=== PATIENT | female | born 1995 | race Caucasian/White ===

== ENCOUNTER 2024-06-08 09:35 | Outpatient (CLI) | payer OTHER, SELFPAY ==
[2024-06-08 11:01] LABS: Alanine Aminotransferase 20 U/L (14-59); Albumin Level 3.6 g/dL (3.4-5.0); Alkaline Phosphatase 91 U/L (46-116); Anion Gap 9 mmol/L (4-12); Aspartate Amino Transferase 14 U/L (15-37); Bilirubin,Total 0.3 mg/dL (0.00-1.00); Blood Urea Nitrogen 11 mg/dL (7-18); Calcium 9.2 mg/dL (8.5-10.1); Carbon Dioxide 25 mmol/L (21-32); Chloride 106 mmol/L (98-108); Estimated Glomerular Filt Rate > 60; Glucose 86 mg/dL (70-99); NT Pro B Type Natriuretic Pept 113 pg/mL (0-125); Osmolality Calculated 288 mOsm/kg (285-295); Potassium 3.9 mmol/L (3.5-5.1); Sodium 140 mmol/L (136-145); Total Protein 7.4 g/dL (6.4-8.2)
[2024-06-08 12:20] LABS: Thyroid Stimulating Hormone Reflex 1.44 u/IU/mL (0.36-3.74)
== END 2024-06-08 09:36 | disposition home or self-care (01) ==
DX: G93.32 Myalgic encephalomyelitis/chronic fatigue syndrome (principal); R63.5 Abnormal weight gain
CPT/HCPCS: 36415; 80053; 83880; 84443

== ENCOUNTER 2024-12-10 16:18 | Outpatient (RCR) | payer OTHER, SELFPAY ==
--- NOTE | 2024-12-12 14:13 | BUOTOPEVAL ---
Assessment and note entered by Komal Bedolla OT Evaluation Information Assessment Status Evaluation Diagnosis R extensor tendon injury ICD-10 Condition Codes (OT) Pain in right hand M79.641,Generalized muscle weakness M62.81 Onset September 2024 Reported Pain Level Pain Score 3: Self Report Pain Score 2: Self Report Assessment OT Clinical Summary The patient is a 29 year old female who was referred to outpatient OT due to R index finger pain and extensor tendon injury. 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 At this time, the patient demonstrates minimal pain, minimal AROM deficits and discomfort during daily tasks such as handwriting. The patient requires skilled OT to address deficits and improve the patient's ability to engage in caring for her family and performing ADLs without discomfort. The patient to be seen 1-2x/week for 10 visits. Plan of Care Interventions Therapeutic Exercise,Manual Therapy,Therapeutic Activities,Hot Pack/Cold Pack,Sensory Integrative Techniques,Self-Care/Home Management,Ultrasound OT Services Indicated Yes Treatment Frequency and 1-2x/week for 10 visits. Duration These treatments will address the objective and functional deficits as defined above. The patient will be advanced safely and appropriately in order for the patient to progress towards his/her prior level of function. Additional exercises will be introduced and as well as a comprehensive home exercise program upon discharge, if needed, ?to ensure carryover of functional gains achieved in the clinic. This treatment plan has been reviewed and agreement upon by the patient.
--- NOTE | 2024-12-12 14:14 | OPREHPOC ---
Outpatient Therapy Plan of Care This is a Multidisciplinary Plan of Care that may contain components documented by all disciplines (PT, OT, and ST.) OT Problem 1 OT Problem #1 Knowledge Deficit OT Goal 1 Goal / Goal Update The patient will demonstrate 100% knowledge and return demonstration for UE HEP in order to avoid further injury and pain. Target Visit 10 OT Problem 2 OT Problem #2 Pain OT Goal 1 Goal / Goal Update The patient will demonstrate decreased pain during everyday activities such as handwriting by reporting <1/10 pain at its worst in order to perform work tasks. Target Visit 10 OT Problem 3 OT Problem #3 Impaired Range of Motion OT Goal 1 Goal / Goal Update The patient will demonstrate increased AROM of R hand digit 2 by increasing digit flexion by > 5 degrees for each joint in order to perform ADLs without discomfort. SOC: R hand MP flexion: 80 degrees R hand PIP flexion: 66 degrees R hand DIP flexion: 65 degrees Target Visit 10 OT Problem 4 OT Problem #4 Impaired Strength OT Goal 1 Goal / Goal Update The patient will demonstrate increased R chemist physical strength by demonstrating 88 lbs of chemist physical strength and 10 lbs of two point pinch strength needed to open containers. Target Visit 10
--- NOTE | 2025-03-05 12:44 | BUOTOPDC ---
Assessment and note entered by Komal Bedolla, OT Evaluation Information Assessment Status Discharge - Pt Not Present Diagnosis R extensor tendon injury ICD-10 Condition Codes (OT) Pain in right hand M79.641,Generalized muscle weakness M62.81 Onset September 2024 Reported Pain Level Assessment OT Clinical Summary The patient has not been to therapy for >30 days, at last appointment she reported no pain in digit and reports that she is able to perform daily activities WFL. Therapist has educated patient on UE HEP and patient demonstrated good progress toward pain goal. The patient is discharged at this time due to not returning to therapy and reports of no pain. Plan of Care OT Services Indicated No
== END 2024-12-28 20:00 | disposition home or self-care (01) ==
LOC: CHSOT 16:18
PROVIDERS: Visit Provider Nurse Practitioner Family
DX: S69.91XD Unspecified injury of right wrist, hand and finger(s), subsequent encounter (principal)
CPT/HCPCS: 97035; 97110; 97140; 97165

== ENCOUNTER 2024-12-25 16:17 | Emergency (ER) | payer OTHER, SELFPAY ==
--- NOTE | ~2024-12-25 | XR_ITS ---
EXAMINATION: XR chest 2V DATE: 12/25/2024 17:38 INDICATION: Chest pain. TECHNIQUE: Frontal and lateral views of the chest were obtained. COMPARISON: None. FINDINGS: There is no pneumonia, pleural effusion, or pneumothorax. The heart size is normal. IMPRESSION: 1. No acute cardiopulmonary disease. Reviewed, dictated and finalized at location A. NDWATER PROGRAMS DIRECTOR
[2024-12-25 16:36] VITALS: BP 113/72; PULSE 108; RESP 16; TEMP 36.8; O2SAT 100
--- NOTE | 2024-12-25 16:44 | ED.CHESTPAIN ---
HPI - Chest Pain General Chief Complaint: Extremity Problem,Nontraumatic Stated Complaint: Chest Pain Time Seen by Provider: 12/25/24 17:30 Mode of arrival: ambulatory Limitations: no limitations History of Present Illness HPI narrative: 29-year-old female presents with concern for left-sided chest and back pain. Pain worsens with taking a deep breath or coughing, worsens with moving her left arm. She reports she feels winded when she takes deep breaths. She denies cough, shortness of breath. She denies injury or trauma. She denies bruising, rash. She also reports today she began having some nasal congestion and had a low-grade temperature. MD complaint: chest pain Related Data Home Medications ?Medication ?Instructions ?Recorded ?Confirmed ?Last Taken ?Type amitriptyline 50 mg tablet mg 12/25/24 Unknown History buspirone 7.5 mg tablet mg 12/25/24 Unknown History hyoscyamine sulfate 0.125 mg tablet mg 12/25/24 Unknown History metoprolol tartrate 25 mg tablet mg 12/25/24 Unknown History midodrine 10 mg tablet mg 12/25/24 Unknown History ondansetron 4 mg disintegrating mg 12/25/24 Unknown History tablet sertraline 50 mg tablet mg 12/25/24 Unknown History Allergies Allergy/AdvReac Type Severity Reaction Status Date / Time azithromycin (From Zithromax) Allergy Intermediate rash Verified 12/25/24 17:09 Review of Systems Review of Systems: CONSTITUTIONAL: Denies malaise, chills, sweats, or fever. EYES: Denies visual changes, redness, or discharge. ENT: Reports rhinorrhea, congestion. Denies sinus pain, otalgia or sore throat. CARDIOVASCULAR: Reports left chest pain. Denies palpitations or edema. RESPIRATORY: Denies cough or dyspnea. GASTROINTESTINAL: Denies abdominal pain, nausea, vomiting, diarrhea, bloody, or mucous stools. GENITOURINARY: Denies dysuria or hematuria. SKIN: Denies rash or itching. MUSCULOSKELETAL: Reports pain in left upper back, side, chest that worsens with moving and deep breathing NEUROLOGIC: Denies numbness, weakness, or headache. PSYCHIATRIC: Denies anxiety or depression. All systems reviewed & are unremarkable except as noted in HPI and below PMFSH Comments At time of signature, agree with nursing past medical, surgical, social and family history. There is no relevant family history pertinent to the presenting complaint Exam Narrative: GENERAL: Well-appearing, well-nourished, and in no acute distress. HEAD: Normocephalic, atraumatic. EYES: PERRLA, sclera clear, and EOMI. No nystagmus. ENT: Nares clear. Mucous membranes moist. TM pearly sidhu with sharp light reflex bilaterally; no tragal tenderness. Oropharynx without erythema or lesions. Tonsils not enlarged and without exudate. NECK: Supple. CHEST: No respiratory distress. Clear to auscultation. No bony deformities, no asymmetry. Speaks in full sentences. Tenderness to palpation in the left lateral rib area, left anterior chest HEART: Regular rate and rhythm. No murmur heard. Normal peripheral pulses. EXTREMITIES: Normal range of motion. No edema. Normal strength and sensation. SKIN: Warm, dry, no visible rash. NEURO: Alert and oriented x3. PSYCH: Normal mood and affect Course Course Emergency Course: Patient is aware of diagnosis, understands and agrees to treatment plan. Anticipatory guidance given. Patient agrees to follow-up as directed and is aware of reasons to seek care at the emergency department. Portions of this record may have been created with voice recognition software Level of Care: Express Care Visit Vital Signs Vital signs: Vital Signs Temperature 98.3 F 12/25/24 16:36 Pulse Rate 108 H 12/25/24 16:36 Respiratory Rate 16 12/25/24 16:36 Blood Pressure 113/72 12/25/24 16:36 Pulse Oximetry 100 12/25/24 16:36 Temperature 98.3 F 12/25/24 16:36 Pulse Rate 108 H 12/25/24 16:36 Respiratory Rate 16 12/25/24 16:36 Blood Pressure 113/72 12/25/24 16:36 Pulse Oximetry 100 12/25/24 16:36 Reviewed. MDM - Chest Pain MDM Narrative Medical decision making narrative: No evidence of ACS, pericarditis, myocarditis, pulmonary embolism, pneumothorax, pneumonia, Zoster, or esophageal perforation. Historically not abrupt in onset, tearing or ripping, pulses symmetric, no evidence of aortic dissection. No pulse deficit. Not associated with abdominal or back pain. Imaging Data My impression: Images reviewed, interpreted by radiologist, agree, see report. Radiologist's impression: EXAMINATION: XR chest 2V DATE: 12/25/2024 17:38 INDICATION: Chest pain. TECHNIQUE: Frontal and lateral views of the chest were obtained. COMPARISON: None. FINDINGS: There is no pneumonia, pleural effusion, or pneumothorax. The heart size is normal. IMPRESSION: 1. No acute cardiopulmonary disease. ECG Data EKG #1: ECG completion date: 12/25/24 ECG completion time: 17:59 Prior ECG tracings: not available for review Interpretation: Rate 103, a ME interval 160, QRS duration 93 possible left atrial enlargement and nonspecific T-wave abnormality EKG Interpretation: normal rate and tachycardia Critical Care Time Critical Care Time Critical Care Time: No Discharge Plan Discharge Clinical Impression: Chest wall pain Patient Disposition: Home, Self-Care Condition: Stable Instructions: Chest Wall Pain (ED) Additional Instructions: Your COVID and flu tests are negative Your chest x-ray is normal EKG does not show any acute concerns Please follow up with your Primary Care Doctor within 48-72 hours - call for an appointment. Activity as tolerated. Take Tylenol for pain, take muscle relaxers every 8 hours as needed for muscle spasm- do not drive or make any important decisions while on this medication for it can make you drowsy. You may apply heat or cold to the area as needed. If you experience any worsening pain, swelling, numbness, weakness please go to ER. Patient Language: Sammarinese Prescriptions: New cyclobenzaprine 10 mg tablet 10 mg PO TID PRN (Reason: muscle spasm) Qty: 20 0RF No Action amitriptyline 50 mg tablet hyoscyamine sulfate 0.125 mg tablet buspirone 7.5 mg tablet ondansetron 4 mg tablet,disintegrating sertraline 50 mg tablet midodrine 10 mg tablet metoprolol tartrate 25 mg tablet Follow-up/Referrals: PHYSICIAN,CERTIFIED TRAVEL COUNSELOR [Primary Care Provider] - Stand Alone Forms: Work/School Release IP Time of Disposition: 18:06
--- NOTE | 2024-12-25 17:17 | ECG_ITS ---
Test Date: 2024-12-25 17:59:50 Measurements Intervals [place] Rate: 103 P: 26 NH: 160 QRS: 50 QRSD: 93 T: -5 QT: 326 QTc: 428 Interpretive Statements SINUS TACHYCARDIA POSSIBLE LEFT ATRIAL ENLARGEMENT [-0.1mV P WAVE IN V1/V2] NONSPECIFIC T-WAVE ABNORMALITY No previous ECG available for comparison Electronically Signed On 12-26-2024 15:51:35 DYE LINE OPERATOR by Ronal Rg M.D.
[2024-12-25 17:50] LABS: EDCOVIDSCREEN Negative (Negative); EDINFLUASCREEN Negative (Negative); EDINFLUBSCREEN Negative (Negative)
== END 2024-12-25 18:13 | disposition home or self-care (01) ==
PROVIDERS: Emergency Provider Nurse Practitioner
DX: R07.89 Other chest pain (principal); Z20.822 Contact with and (suspected) exposure to COVID-19; I10 Essential (primary) hypertension; E78.00 Pure hypercholesterolemia, unspecified; K50.90 Crohn's disease, unspecified, without complications
CPT/HCPCS: 71046; 87426; 87804; 93005; 99203; G0463

== ENCOUNTER 2025-03-09 18:09 | Emergency (ER) | payer OTHER, SELFPAY ==
--- NOTE | ~2025-03-09 | CT_ITS ---
CT abdomen pelvis w con Ordering provider: Jasbir Martinez MD History: 29 years Female with . Crohn's. irritable bowel. nausea vomiting X 5 days . Comparison: None. Technique: CT abdomen and pelvis with IV and without oral contrast. Automated exposure control and it erative reconstruction technique were employed. The dose-length product was 795.18 mGy-cm. 100 mL Omn ipaque 350 was given IV. Findings: VISUALIZED LOWER CHEST: Dependent atelectatic changes. UPPER ABDOMINAL ORGANS: Liver: Normal. Gallbladder: Normal. Spleen: Normal. Stomach/duodenum: Normal. Pancreas: Normal. Adrenals: Normal. Kidneys: Normal. PELVIC ORGANS: The bladder is normal. Left ovary is seen anterior to the uterus. IUD is noted in the uterus. BOWEL AND MESENTERY: Colon: No diverticulitis or inflammatory changes.. Normal appendix. Small Bowel: Normal. No obstruction. Peritoneum/mesentery: No free air or free fluid. No mesenteric lymphadenopathy. Small mesenteric lymp h nodes are noted. RETROPERITONEUM: Normal aorta. No retroperitoneal lymphadenopathy. MUSCULOSKELETAL: Superficial soft tissues: The superficial soft tissues are normal. Bones: Normal spine. IMPRESSION: 1. No evidence of appendicitis, diverticulitis or intestinal obstruction. Reviewed, dictated and finalized at location A.
[2025-03-09 18:10] VITALS: BP 123/83; PULSE 140; RESP 18; TEMP 37.3; O2SAT 97
--- NOTE | 2025-03-09 18:13 | ED.GENADULT ---
HPI - General Adult General Chief complaint: Nausea/Vomiting/Diarrhea Stated complaint: vomiting Time Seen by Provider: 03/09/25 18:13 History of Present Illness HPI narrative: 29-year-old white female with history of Crohn's irritable bowel hypertension complains of 5 days of nausea vomiting and diarrhea and abdominal pain. She has vomited 4 times and had 4 diarrheal stools today loose watery nonbloody she has had associated dizziness and lightheadedness with standing for the last 4 days she said she passed out today hit her head denies any headache see a little bit of shortness of breath she says from vomiting chest is sore and her neck is sore from vomiting. She has feels weak all over she thinks is from the vomiting. She denies any cough sore throat runny nose problems talking seeing or hearing. She is lightheaded when she walks denies any rash or itching bleeding or bruising numbness lumps or bumps. Patient only took 1 Imodium today and took 1 Zofran last night which helped. Denies any blood in her stool. No one around her is sick. Three weeks ago she said she had the flu as did her significant other. Denies any swelling denies any other pain besides her abdomen. she has an IUD last menstrual period was 5 years ago. She has not been on any antibiotics for the last 3 months. denies any other compl aints. PMH: Crohn's herbal bowel syndrome hypertension influx of cerebral spinal fluids and is on Azetazoamide Related Data Home Medications ?Medication ?Instructions ?Recorded ?Confirmed ?Last Taken ?Type amitriptyline 50 mg tablet mg 12/25/24 Unknown History buspirone 7.5 mg tablet mg 12/25/24 Unknown History hyoscyamine sulfate 0.125 mg tablet mg 12/25/24 Unknown History metoprolol tartrate 25 mg tablet mg 12/25/24 Unknown History midodrine 10 mg tablet mg 12/25/24 Unknown History ondansetron 4 mg disintegrating mg 12/25/24 Unknown History tablet sertraline 50 mg tablet mg 12/25/24 Unknown History Allergies Allergy/AdvReac Type Severity Reaction Status Date / Time azithromycin (From Zithromax) Allergy Intermediate rash Verified 12/25/24 17:09 Review of Systems Review of Systems: All systems reviewed & are unremarkable except as noted in HPI and below PMFSH Comments Past medical history : Anemia, Crohn's disease, irritable bowel disease, hypertension, influx of spinal fluid, tachycardia ( no history of thyroid hypercholesterolemia other lung or heart disease. Exam Narrative: White female patient who looks ill pale and in moderate distress.? Head normocephalic, atraumatic.? Eyes conjunctiva pink sclera nonicteric.? Extraocular movements are intact.? Ears externally normal.? TMs are normal. ?Oropharynx is clear with moist mucous membranes without exudates.? Neck is supple nontender no lymphadenopathy.? Back is nontender.? Lungs are clear.? Heart is tachycardic with a regular rhythm without murmurs gallops or rubs.? Chest wall nontender. Abdomen is soft and nontender no hepatosplenomegaly or masses no CVA tenderness no abdominal bruits.? Extremities no cyanosis clubbing or edema.? Skin is warm and dry without rashes or lesions.? Neurological patient is alert and oriented x4.? Motor and sensory grossly intact.? Gait is normal. Course Vital Signs Vital signs: Vital Signs Temperature 37.3 C 03/09/25 18:10 Pulse Rate 140 H 03/09/25 18:10 Respiratory Rate 18 03/09/25 18:10 Blood Pressure 123/83 03/09/25 18:10 Pulse Oximetry 97 03/09/25 18:10 Oxygen Delivery Room Air 03/09/25 18:10 Temperature 36.6 C 03/09/25 20:59 Pulse Rate 99 03/09/25 20:59 Respiratory Rate 18 03/09/25 20:59 Blood Pressure 113/67 03/09/25 20:59 Pulse Oximetry 99 03/09/25 20:59 Oxygen Delivery Room Air 03/09/25 20:59 Medical Decision Making [facility] Narrative Medical decision making narrative: ?Patient placed in room: 2 ? History and physical was performed. serum test was negative. Normal CBC. CMP: Creatinine 1.09 Osmo 298 albumin 3.3 chloride 109 potassium 3.4 rest of CMP was normal. CT abdomen pelvis with IV contrast showed no active disease UA: Negative Independent Historian: patient External Source Review: Differential Dx includes but not limited to: Crohn's irritable bowel syndrome acute gastroenteritis Clostridium difficile electrolyte imbalance dehydration renal failure Medications were Reviewed: Medications given: Ketoralac 30 mg IV Zofran 4 mg IV normal saline 1 L, 2 L normal saline given. after her 1 L she felt much better look better her pulse went from 140 to 110. K-Dur 40 mg p.o. pulse at discharge was 96. Patient felt even better after the 2 L. Independently Interpreted by me: labs independently interpreted by me. Shared decision Making: Evaluation was discussed all questions were asked and answered patient agreed with the plan. she is to take her Zofran 4 mg ODT every 4 hours as needed for nausea vomiting and use her Imodium up to 4 times a day as needed Tylenol as needed for pain. Return if she gets worse or develops any new symptoms. She should follow with her primary care provider this week and have her kidney tests And potassium rechecked. K-Dur 40 mEq daily for 7 days. she will not take more than 2 mg of Imodium 4 times a day As needed for diarrhea. Social Situation Impacting Patients Care: History irritable bowel Crohn's disease DISCHARGE DIAGNOSIS: nausea vomiting diarrhea dehydration hypokalemia acute kidney injury, history of Crohn's disease DISPOSITION : discharge home CONDITION AT DISCHARGE: stable improved Vital Signs Vital Signs: Vital Signs Temperature 37.3 C 03/09/25 18:10 Pulse Rate 140 H 03/09/25 18:10 Respiratory Rate 18 03/09/25 18:10 Blood Pressure 123/83 03/09/25 18:10 Pulse Oximetry 97 03/09/25 18:10 Oxygen Delivery Room Air 03/09/25 18:10 Temperature 36.6 C 03/09/25 20:59 Pulse Rate 99 03/09/25 20:59 Respiratory Rate 18 03/09/25 20:59 Blood Pressure 113/67 03/09/25 20:59 Pulse Oximetry 99 03/09/25 20:59 Oxygen Delivery Room Air 03/09/25 20:59 Lab Data 03/09/25 18:46 03/09/25 18:46 Labs: Lab Results 03/09/25 03/09/25 Range/Units 18:46 20:31 WBC 7.9 (4.8-10.8) K/mm3 RBC 4.59 (4.20-5.40) M/mm3 Hgb 13.9 (12.0-15.0) g/dL Hct 42.4 (35.0-49.0) % MCV 92.4 (78.0-102.0) fL MCH 30.3 (27.0-31.0) pg MCHC 32.8 (32-36) g/dL RDW 12.9 (11.6-14.4) % Plt Count 295 (150-420) K/mm3 MPV 10.7 (9.2-11.8) fl Sodium 144 (136-145) mmol/L Potassium 3.4 L (3.5-5.1) mmol/L Chloride 109 H (98-108) mmol/L Carbon Dioxide 24 (21-32) mmol/L Anion Gap 11 (4-12) mmol/L BUN 14 (7-18) mg/dL Creatinine 1.09 H (0.55-1.02) mg/dL Estim Creat Clear Calc 74 ml/min Estimated GFR 60 (59 - ) Glucose 98 (70-99) mg/dL Calculated Osmolality 298 H (285-295) mOsm/kg Calcium 8.5 (8.5-10.1) mg/dL Total Bilirubin 0.4 (0.00-1.00) mg/dL AST 11 L (15-37) U/L ALT 20 (14-59) U/L Alkaline Phosphatase 100 (46-116) U/L Total Protein 7.5 (6.4-8.2) g/dL Albumin 3.3 L (3.4-5.0) g/dL Serum HCG, Qual Negative Urine Color Light yellow (Yellow) Urine Appearance Clear (Clear) Urine pH 5.5 (5.0-8.0) Ur Specific [place] 1.010 (1.010-1.020) Urine Protein Negative (Negative) Urine Glucose (UA) Negative (Negative) Urine Ketones Negative (Negative) Ur Blood (Man) Negative (Negative) Urine Nitrate Negative (Negative) Urine Bilirubin Negative (Negative) Urine Urobilinogen 0.2 (0.2-1.0) mg/dL Leukocyte Esterase Rfl Negative (Negative) ZAID/UL Discharge Plan Discharge Clinical Impression: Nausea vomiting and diarrhea, Dehydration, Acute kidney injury, Acute hypokalemia Crohn's disease Qualifiers: Gastrointestinal tract location: unspecified location Digestive disease complication type: unspecified complication Qualified Code(s): K50.919 - Crohn's disease, unspecified, with unspecified complications Patient Disposition: Home Condition: Stable Instructions: Acute Kidney Injury (DC), Hypokalemia (ED), Acute Nausea and Vomiting (ED), Acute Diarrhea (ED) Additional Instructions: take Zofran 4 mg ODT every 4 hours as needed for nausea or vomiting. Take your Imodium 2 mg or 15 mL up to 4 times a day as needed for diarrhea but not more than 4 times a day in 24 hours. Take K-Dur 20 mEq 2 tablets once a day for 7 days. Follow-up with your primary care provider to have him or her recheck your potassium and your kidney function this week. Slowly advance her diet as instructed. Increase your fluids by mouth as instructed. Return if you get worse or develops any new symptoms. Patient Language: Citizen Of [place] Prescriptions: New ondansetron 4 mg tablet,disintegrating 4 mg PO Q4H PRN (Reason: nausea and vomiting) 14 Days Qty: 30 0RF Rx Instructions: give 1st dose 30min before emetogenic chemo potassium chloride 20 mEq tablet,ER particles/crystals 40 meq PO ONCE 7 Days Qty: 14 0RF No Action amitriptyline 50 mg tablet hyoscyamine sulfate 0.125 mg tablet buspirone 7.5 mg tablet ondansetron 4 mg tablet,disintegrating sertraline 50 mg tablet midodrine 10 mg tablet metoprolol tartrate 25 mg tablet cyclobenzaprine 10 mg tablet 10 mg PO TID PRN (Reason: muscle spasm) Qty: 20 0RF Follow-up/Referrals: UNKNOWN,DOCTOR [Non-Staff] -
--- OUTSIDE RECORDS SUMMARY | 2025-03-09 18:13 | XMS_ITS | Encounter Summary ---
Author Organization [facility] Address [facility] [place] [address] Care Team Providers Care Manager Audit Name Role Phone Osiris Salinas MD Unavailable Ev Pollack NP Primary Care Provider [phone] [facility] DO Primary Care Provider [phone] Lisa Ott MD Primary Care Provider [phone] Encounter Details Date Type Department Care Team (Late st Contact Info) Description 04/14/2023 Jaunt Message Enc [facility] [address] [place] [address] Osiris Salinas MD [address] [place] [address] Side effects of medication Social History Tobacco Use Types Packs/Day Years Used Date Smoking Tobacco: Former Cigarettes Q uit: 10/24/2017 Smokeless Tobacco: Never Comments:non smoker Alcohol Use Standard Drinks/Week Comments Yes 0 (1 standard drink = 0.6 oz pur e alcohol) rarely AUDIT-C Answer Date Recorded Frequency of Alcohol Consumption Never 10/24/2018 Average Number of Drinks Not on file 018 Frequency of Binge Drinking Not on file 09/29 PHQ-2 Answer Date Recorded PHQ-2 Score - If the patient scores above 3, please move on to questions 3-9 0 05/26/2022 Comments No Sex and Gender Information Value Date Recorded Sex Assigned at Female 04/25/2024 10:03 AM CDT Legal Sex Female 6:36 PM CDT Gender Identity Female 04/25/2024 10:03 AM CDT Sexual Orientation Not on file documented as of this encounter Plan of Treatment Upcoming Encounters Date Type Department Care Team (Late st Contact Info) Description 11/26/2025 3:15 PM CONSTRUCTION FOREMAN Office Visit [facility] el [address] [place] [address] Osiris Salinas MD [address] [place] [address] documented as of this encounter Visit Diagnoses Not on filedocumented in this encounter Additional Health Concerns Assessment Noted Time PHQ-9 Depression Total Score: 0 02/12/20 4:34 PM CDT documented as of this encounter Care Teams Manager Audit Relationship Specialty Start Date End Date Ev Pollack NP [address] [place] [address] PCP - General Nurse Practitioner Family 09/22/22 06/06/24 [facility] DO [facility] [place] [address] PCP - General FAMILY PRACTICE 06/07/24 10/01/24 Lisa Ott MD [facility] [place] [address] PCP - General FAMILY PRACTICE 10/02/24 Osiris Salinas MD [address] [place] [address] Consulting Physician CARDIOVASCULAR DISEASE 02/23/22 documented as of this encounter
--- OUTSIDE RECORDS SUMMARY | 2025-03-09 18:13 | XMS_ITS | Continuity of Care Document ---
Author Organization [facility] Address [address] [facility] [place] [place] [address] Phone Care Team Providers Care Medical Secretary Name Role Phone NguyenIleana renteria PA-C Unavailable [...] W/O SCOPE OFFICE/OUTPATIENT VISIT, EST OFFICE/OUTPATIENT VISIT, [facility] Advance Directives Directive Yes / No Effective Date File Name No Information Encounters Encounter Description Practice Location Reason(s) For Visit Diagnoses Date Provider Providers Copied on Encounter Complete [facility], [address] [place] [address], [id number], [place] tel:[phone] [facility] No Information 7 Nguyen Tejeda. [address] [place] [address], [address], [place]. tel:[phone] OFFICE/OUTPA TIENT VISIT, EST [facility], [address] [place] [address], [id number], tel:[phone] [facility] dysuria (chief complaint) DysuriaUTI Feb- 7 Nguyen Tejeda. [address] [place], [address], [place]. tel:[phone] Referring Provider: Broderick Garza, [facility] [place], [address] . tel:[phone] OFFICE/OUTPA TIENT VISIT, [facility], [address], [place], [place], [id number], [place] tel:[phone] [facility] nausea and vomiting (chief complaint) Nausea with vomiting, unspecifiedGastro enteritisAcute upper respiratory infection, unspecified 6 Latesha Villafana. [address] [place], [place], [id number], [place]. tel:[phone] Referring Provider: Broderick Garza, [facility] [place], [address] . tel:[phone] Family History Family Member Type Diagnosis Age At Onset No Information Payers Payer name Insurance type Covered green party ID [place] araujo(s) [facility] [id number] CI [id number] Social History Type Description Quantity Date Captured [...] Related to Acute upper respiratory infection, unspecified Pt presents with ups et stomach, [...] understanding. Related to Nausea with vomiting, unspecified Assessments Type Assessment Date No Information Patient Care Teams Name Effective Dates (start - stop) Status Members No Information
--- OUTSIDE RECORDS SUMMARY | 2025-03-09 18:13 | XMS_ITS | Encounter Summary ---
Author Organization [facility] Address [address] [place] [address] Care Team Providers Care Plastic Frame Inserter Name Role Phone Osiris Salinas MD Unavailable [facility] DO Primary Care Provider [phone] Lisa Ott MD Primary Care Provider [phone] Encounter Details Date Type Department Care Team (Late Contact Info) Description 06/22/2024 GeneTex Message Enc [facility] [address] [place] [id number] [facility] Provider lab results Social History Tobacco Use Types Packs/Day Years Used Date Smoking Tobacco: Former Cigarettes Q uit: 10/24/2017 Smokeless Tobacco: Never Comments:non smoker Alcohol Use Standard Drinks/Week Comments Not Currently 0 (1 standard drink = 0.6 oz pur e alcohol) rarely AUDIT-C Answer Date Recorded Frequency of Alcohol Consumption Never 10/24/2018 Average Number of Drinks Not on file 018 Frequency of Binge Drinking Not on file 09/29 PHQ-2 Answer Date Recorded Patient Health Questionnaire-2 Score 0 05/25/2023 Comments No Sex and Gender Information Value Date Recorded Sex Assigned at Female 04/25/2024 10:03 AM CDT Legal Sex Female 6:36 PM CDT Gender Identity Female 04/25/2024 10:03 AM CDT Sexual Orientation Not on file documented as of this encounter Plan of Treatment Upcoming Encounters Date Type Department Care Team (Late Contact Info) Description 11/26/2025 3:15 PM HYDROELECTRIC STATION OPERATOR CHIEF Office Visit [facility] el [address] [place] [address] Osiris Salinas MD [address] [place] [address] documented as of this encounter Visit Diagnoses Not on filedocumented in this encounter Additional Health Concerns Assessment Noted Time PHQ-9 Depression Total Score: 0 02/12/20 22 4:34 PM CDT documented as of this encounter Care Teams Plastic Frame Inserter Relationship Specialty Start Date End Date [facility] DO [address] [place], [place] [address] PCP - General FAMILY PRACTICE 06/07/24 10/01/24 [place] [address] [place] [address] PCP - General FAMILY PRACTICE 10/02/24 Osiris Salinas MD [address] [place] [address] Consulting Physician CARDIOVASCULAR DISEASE 02/23/22 documented as of this encounter
--- OUTSIDE RECORDS SUMMARY | 2025-03-09 18:13 | XMS_ITS | Clinical Summary ---
Author Organization [facility] Address [address] [place] [address] Care Team Providers Care Big Data Software Engineer Name Role Phone Ev Pollack NP Primary Care Provider [phone] Social History Tobacco Use Types Packs/Day Years Used Date Smoking Tobacco: Never Assessed Personal Safety Answer Date Recorded Getting School Help Needed Not on file 02/15 Comments Unknown Sex and Gender Information Value Date Recorded Sex Assigned at Not on file Legal Sex Female 5:38 PM CDT Gender Identity Not on file Sexual Orientation Not on file Plan of Treatment Health Maintenance Due Date Last Done Comments Cervical Cancer Screening 1997 Depression Screening 1997 Hepatitis C Screening 1997 Regular Well Visit/Exam 18-64 2015 Influenza Vaccine (#1) 2024 07/30/2020 DTaP/Tdap/Td Vaccine (9 - Td or Tdap) 07/05/2028 07/05/2018, 05/09/2012, 07/11/2009, Additional history exists Hepatitis B Screening Completed 08/27/1998 , 06/24/1998, 02/05/1998 Varicella Vaccines Completed 06/28/2011, 0 07/02/2003, 06/28/2000, Additional history exists HPV Vaccines Completed 05/09/2012, 05/2012, 06/28/2011 Pneumococcal vaccine <65 Aged Out No longer eligible based on patient's age to complete this topic Insurance [facility] CHOICE PLUS [facility] HMO/PPO Address: [facility] [address] [place] [address] Care Teams Big Data Software Engineer Relationship Specialty Start Date End Date Ev Pollack NP [facility] [place] [address] PCP - General Nurse Practitioner 02/16/24
--- OUTSIDE RECORDS SUMMARY | 2025-03-09 18:13 | XMS_ITS | Encounter Summary ---
Author Organization [facility] Address [facility] [place] [address] Care Team Providers Care Country Sales Manager Name Role Phone Cachorro Myles MD Primary Care Provider Unava ilable Diane Plunkett SALES ATTENDANT BUILDING MATERIALS Primary Care Provider + [phone] Diane Plunkett SALES ATTENDANT BUILDING MATERIALS Primary Care Provider + [phone] Osiris Salinas MD Unavailable Ev Pollack NP Primary Care Provider [phone] [facility] DO Primary Care Provider [phone] Lisa Ott MD Primary Care Provider [phone] Encounter Details Date Type Department Care Team (Late Contact Info) Description 10/06/2018 Prep for Procedure [facility] - [place] [address] [place] [address], [id number] [place] [address] Mundo Sullivan MD [address] [place] [address] Social History Tobacco Use Types Packs/Day Years Used Date Smoking Tobacco: Never Assessed Comments Unknown Sex and Gender Information Value Date Recorded Sex Assigned at Female 04/25/2024 10:03 AM CDT Legal Sex Female 6:36 PM CDT Gender Identity Female 04/25/2024 10:03 AM CDT Sexual Orientation Not on file documented as of this encounter Plan of Treatment Upcoming Encounters Date Type Department Care Team (Late st Contact Info) Description 11/26/2025 3:15 PM O AND M SUPERVISOR Office Visit [facility] eld [address] [place] [address] Osiris Salinas MD [address] [place], [place] [address] documented as of this encounter Visit Diagnoses Diagnosis Abdominal pain- Primary Abdominal pain, unspecified site documented in this encounter Care Teams Country Sales Manager Relationship Specialty Start Date End Date Cachorro Myles MD PCP - General FAMILY PRACTICE 10/23/18 04/16/21 Diane Plunkett, NADER [address] [place] [address] PCP - General NURSE PRACTITIONER 04/17/21 05/27/21 Diane Plunkett NP [address] [place] [address] PCP - General NURSE PRACTITIONER 07/06/21 09/21/22 Ev Pollack NP [address] [place] [address] PCP - General Nurse Practitioner Family 09/22/22 06/06/24 Heavenly House DO [address] [place] [address] PCP - General FAMILY PRACTICE 06/07/24 10/01/24 Lisa Ott MD [address] [place] [address] PCP - General FAMILY PRACTICE 10/02/24 Osiris Salinas MD [address] [place] [address] Consulting Physician CARDIOVASCULAR DISEASE 02/23/22 documented as of this encounter
--- OUTSIDE RECORDS SUMMARY | 2025-03-09 18:13 | XMS_ITS | Clinical Summary ---
Author Organization [facility] Address [facility] [place] [address] Care Team Providers Care Teachers' Assistant Name Role Phone Osiris Salinas MD Unavailable Lisa Ott MD Primary Care Provider [phone] Allergies Active Allergy Reactions Criticality Noted Date Comments Azithromycin Unknown 05/30/2012 Latex Rash Low 10/24/2018 Tetracyclines & Related Unknown 05/30/2012 Medications albuterol sulfate HFA 108 (90 Base) MCG/ACT inhaler Inhale 1-2 puffs into the lungs. Every 4-6 Hours As Needed 5 Active Multiple Vitamins-Minerals (MULTIVITAL) Tab Act marcella fluticasone propionate 50 MCG/ACT nasal spray 1 spray by Nasal route daily. Active fexofenadine 180 MG tablet Take 1 tablet (180 mg total) by mouth daily. Active Benzoyl Peroxide 2.5 % CreamIndications: Acne vulgaris Apply thin layer to face daily in the morning. 21 g 1 1 Active omeprazole 20 MG capsule Take 1 capsule (20 mg total) by mouth daily. Active meclizine (ANTIVERT) 25 MG tablet Take 1 tablet (25 mg total) by mouth 3 (three) times daily as needed. Active hyoscyamine (LEVSIN) 0.125 MG tablet Take 1 tablet (0.125 mg total) by mouth every 6 (six) hours as needed. 3 Active vedolizumab (ENTYVIO) 300 MG injection Inject 300 mg into the vein once. 1 q 8 weeks Active tretinoin (RETIN-A) 0.05 % creamIndications: Acne vulgaris Apply topically nightly at bedtime. 20 g 1 3 Active sertraline (ZOLOFT) 50 MG tabletIndications :Anxiety Take 1 tablet (50 mg total) by mouth daily. 90 tablet 3 4 Active nortriptyline (PAMELOR) 50 MG capsuleIndication s:Crohn's disease of small intestine without complication ([facility]) Take 2 capsules by mouth once daily 60 capsule 4 Active ivabradine (CORLANOR) 7.5 MG tabletIndications :Inappropriate sinus tachycardia ([facility]),SOB (shortness of breath) Take 1 tablet (7.5 mg total) by mouth 2 (two) times daily with meals. 60 tablet 11 4 Active metoprolol tartrate (LOPRESSOR) 25 MG tablet Take 1.5 tablets (37.5 mg total) by mouth 2 (two) times daily. 240 tablet 3 4 Active midodrine (PROAMATINE) 10 MG tablet Take 1 tablet (10 mg total) by mouth 2 (two) times daily. 180 tablet 3 4 Active Active Problems Problem Noted Date Diagnosed Date Acne vulgaris 05/25/2023 Irritable bowel syndrome wit h both constipation and diarrhea 05/25/2023 Anxiety 05/25/2023 Crohn's disease of large int estine without complication ([facility]) 07/05/2019 Crohn disease ([facility]) 05/14/2019 Abdominal pain 10/06/2018 Overview (10/06/2018): Added automatically from request for surgery [id number] GERD (gastroesophageal reflux disease) 8 Overview (10/06/2018): Added automatically from request for surgery [id number] Chronic fatigue syndrome 05/30/2012 Immunizations Name Administration Dates Next Due Dtap (Generic) 07/02/2003, 9,06/24/1998,04/09/1998,09/1998 HPV 05/09/2012,01/04/2012,06/28/2011 Hepatitis B (Generic: Adult) 08/27/1998,06/24/19 98,02/05/1998 Hib Vaccine, Prp-Omp 08/09/1999,06/24/1998,04/09,02/05/1998 Influenza (Generic) 07/30/2020 MMR (Generic) 07/02/2003,04/07/1999 Menactra 07/04/2015 Polio Ipv (Generic) 07/02/2003,04/07/1999,1997,02/05/1998 Tdap (Generic) 07/05/2018,05/09/2012,07/11/2009 Varicella Vaccine 06/28/2011,06/28/2000 Family History Medical History Relation Comments Open Heart Paternal Grandfather Valve Disease Paternal Grandfather Relation Status Comments Brother Alive Father Alive Maternal Grandfather Maternal Grandmother Mother Alive Paternal Grandfather Sister Alive Social History Tobacco Use Types Packs/Day Years Used Date Smoking Tobacco: Former Cigarettes Q uit: 10/24/2017 Smokeless Tobacco: Never Tobacco Cessation:Counseling Given: Not Answered Comments:non smoker Alcohol Use Standard Drinks/Week Comments [...] AM CDT Sexual Orientation Not on file Last Filed Vital Signs Vital Sign Reading Time Taken Comments Blood Pressure 130/72 11/16/2024 11:42 AM LAUNDRETTE OWNER Pulse 93 11/16/2024 11:42 AM LAUNDRETTE OWNER Temperature 36.7 C (98 F) 05/25/2023 9:02 AM CDT Respiratory Rate 16 11/16/2024 11:42 AM LAUNDRETTE OWNER Oxygen Saturation 96% 05/16/2024 3:01 PM CDT Inhaled Oxygen Concentration - - Weight 95.4 kg (210 lb 6.4 oz) 11/16/2024 11:42 AM LAUNDRETTE OWNER Height 160 cm (5' 3 ) 11/16/2024 11:42 AM LAUNDRETTE OWNER Body Mass Index 37.27 11/16/2024 11:42 AM LAUNDRETTE OWNER Plan of Treatment Upcoming Encounters Date Type Department Care Team (Late st Contact Info) Description 11/26/2025 3:15 PM LAUNDRETTE OWNER Office Visit [facility] eld [address] [place] [address] Osiris Salinas MD [address] [place], [place] [address] Health Maintenance Due Date Last Done Comments Cervical Cancer Screening Pap Smear (Age 21 to 29) Every 3 Years 1997 Cervical Cancer Screening 1997 Hepatitis C 2015 Annual Physical 11/11/2022 11/11/2021, 04/16/2021 COVID-19 Vaccine ( season) 2024 PHQ-2 (Physician [place]) 11/28/2024 05/25/2023 DTaP, Tdap and Td Vaccines (9 - Td or Tdap) 07/05/2028 07/05/2018, 05/09/2012, 07/11/2009, Additional history exists Hepatitis B Vaccines Completed 08/27/1998, 06/24/1998, 02/05/1998 HPV Vaccines Completed 05/09/2012, 05/2012, 06/28/2011 Meningococcal Vaccine Completed 07/04/2015 Meningococcal B Vaccine Aged Out No l onger eligible based on patient's age to complete this topic Pneumococcal Vaccine: Pediatrics (0 to 5 Years) and At-Risk Patients (6 to 64 Years) Aged Out No longer eligible based on patient's age to complete this topic RSV Immunizations Under 20 Months Aged Out No longer eligible based on patient's age to complete this topic Insurance MEDICAID [facility] Care Teams Teachers' Assistant Relationship Specialty Start Date End Date Lisa Ott MD [address] [place] [address] PCP - General FAMILY PRACTICE 10/02/24 Osiris Salinas MD [address] [place] [address] Consulting Physician CARDIOVASCULAR DISEASE 02/23/22
--- OUTSIDE RECORDS SUMMARY | 2025-03-09 18:13 | XMS_ITS | Data Portability ---
Author Organization [facility], [address] [facility] ([place]) Address [address] [place] [address] Care Team Providers Care Wing Mailer Machine Operator Name Role Phone KALEB DO Primary Care Provider [phone] Assessment Encounter Date Assessment Date Assessment LastModified by Organization Details LastModified Time 04/25/2024 04/25/2024 1. Pap smear screening test obtained. 2. Self breast exams monthly. 3. Continue follow-up with PCP, cardiology, GI and neurology. 4. Adult partners and prevention is up-to-date. 5. Follow-up with annual visits be seen as needed. [email or web address] Not available 04/25/2024 16:23:02 Plan of Treatment Reminders Order Date Submit Date Provider Last Modified By Organization Details Last Modified Time Details Appointments Annual Well Woman Visit 15.EST 2024 11:00A M Maida Mulligan Not available Not available Not available Lab Pap test, slide( s), cervic al 2023 024 [facility] - [facility] [address], [address], 05/02/2024 09:00:48 Referral None record ed. Procedures None record ed. Surgeries None record ed. Imaging None record ed. Medication Orders None record ed. Patient TargetsNo targets recorded. Patient InstructionsNo instructions recorded. Reason for Referral None Reported. 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 Perfo rmed at: [facility] Order ing Provi thiago: Maida Salomon nt Name: JADEN MICHAEL monalisa #: [id number] /A ge/Ge nder: 1995 (Age: 28) / F Proce dure Date: 2023 SP ECIME N RECEI JULIO CESAR * SureP ath Pap with refle x HPV on ASCUS , Cervi collin/E ndoce rvica l Speci men Adequ acy Satis facto ry for evalu ation Endoc ervic al cell/ trans forma tion zone compo nent prese nt Cytol ogic Diagn osis Negat marcella for intra epith elial lesio n or malig elvin MEDICAL BILLER CODER EL ECTRO NICAL LY VERIF IED BY EPRLITA MATOS E, CT( CP) * 024 13:47 CL INICA L/MEN STRUA L HISTO RY Menst rual Hx: Ameno rrhea Contr acept marcella Histo ry: Intra uteri ne Devic e Other Clini collin Condi tions : ICD-1 0 Code: z01.4 19 The Pap test is a scree rahul test for uteri ne cervi collin cance r with an inher ent, but low false negat marcella rate. A biops y is recom mayelin d for any suspi cious or visib le lesio n. The patie nt shoul d be remin ded to consu lt a gynec ologi c care provi thiago if they exper ience any suspi cious signs or sympt oms regar dless of the Pap test resul t. END OF REPOR T Not Available Nh Only - [facility] [address], [place], [address], 05/01/2024 14:47:56 06/13/20 24 08/05/2023 imagi ng/di agnos tic resul t No observ ation record ed. [email or web address] Not Available 03:23:25 Result Notes None recorded. Procedures Surgical History Date Name Laterality Status Provider Name and Address Organization Details Recorded Time Date of Last [facility] 10:37:08 Imaging Results Imaging Date Name Status LastModified by Organiz ation Details LastModified Time 08/05/2023 imaging/diag nostic result completed [email or web address] Information not available 06/13/2024 03:23:25 Procedure Notes None recorded. Medical Equipment None Reported. Allergies Allergen ID Allergen Name Allergen Category Reaction Reaction Severity Criticality Documentation Date Start Date Code Code System Note Provider Name and Address Organization Details Recorded Time 080726 Zithromax medicatio n Not available Not available Not available 12/26/20232009 21617 4 RxNorm Not Available Not Available Not Available 034483 latex gloves medicatio n Not available Not available Not available 12/26/20232015 55418 UNK Not Available Not Available Not Available Medications Name Sig Start Date Stop Date Status Note LastModified by Organization Details LastModified Time acetazolami de 250 mg tablet active Not Available Not Available Not Available fexofenadin e 180 mg tablet active Not Available Not Available Not Available meclizine 25 mg tablet active Not Available Not Available Not Available hyoscyamine 0.[address] by sublingual route. active Not Available Not Available No t Available tretinoin (emollient) 0.05 % topical cream active Not Available Not Available Not Available sertraline 50 mg tablet Take 1 tablet every day by oral route. active Not Available Not Available No t Available nortriptyli ne 50 mg capsule active Not Available Not Available Not Available midodrine 10 mg tablet active Not Available Not Available Not Available metoprolol tartrate 25 mg tablet active Not Available Not Available No t Available albuterol active Not Available Not Diana ilable Not Available Flonase active Not Available Not Avail able Not Available multivitami n active Not Available Not Available Not Available Mirena active placed 09/2018 Not Available Not Available Not Available Buffered Salt active Not Available Not Available Not Available Entyvio 300 mg intravenous solution Inject by intravenou s route. active Not Available Not Available No t Available Vitals Date Recorded Body height Body mass index (BMI) Body weight Systolic blood pressure Diastolic blood pressure Provider Name and Address Organization Details Last Updated DateTime 04/25/2024 160.02 cm 33.4 kg/m2 26031.8 g 108 mm[Hg] 76 mm[Hg] Yaz Thacker [facility] 15:38:55 Social History Question Answer Notes LastModified by Organizat ion Details LastModified Time What Is Your Level Of Alcohol Consumption? None Information not available 04/25/2024 What Is Your Level Of Caffeine Consumption? None Information not available 04/25/2024 Do You Use Your Seat Belt Or Car Seat Routinely? Yes Information not available 04/25/2024 Are You Sexually Active? Yes Information not available 04/25/2024 Do You Use Any Illicit Or Recreational Drugs? No Information not available 04/25/2024 Sex: Unknown Functional Status Question Answer Note LastModified by Organization D etails LastModified Time What is your exercise level? None Information not available 04/25/2024 Mental Status None recorded. Family History Relationship Description Onset Age of this Age Resolved Age Notes LastModified by Organization Details LastModified Time Mother Malignant tumor of breast [place] Not available 10:38:34 Mother Malignant neoplasm of skin [place] Not available 10:38:59 Maternal Grandmother Malignant tumor of breast [place] Not available 10:38:34 Unspecified Relation Malignant neoplasm of skin grandf ather [place] Not available 04/18/2024 10:38:59 Unspecified Relation Malignant neoplasm of urinary bladder grandf ather [place] Not available 04/18/2024 10:39:13 Medical History No medical history recorded. Gynecological History Statement/Question Response Menses Monthly N STIs/STDs N HPV Vaccine N Date of Last Pap Smear 08/06/2021 Sexually Active? Y Obstetrics History GPAL:G 1 P 0 0 0 1 Type Value Living 1 Total 1 Immunizations Vaccine Type Date Status Note Provider Nam chico and Address Organization Details Recorded Time Tdap 8 completed Yaz Thacker [facility] 04/25/2024 15:38:59 meningococcal MCV4P 5 completed Yaz Thacker [facility] 04/25/2024 15:39:00 Past Encounters Encounter ID Performer Location Encounter Start Date Encounter Closed Date Diagnosis/Indication Diagnosis SNOMED-CT Code Diagnosis ICD10 Code Diagnosis Note [id number] Maida Mulligan APRN, CNM [address] [facility] ([place]) [address] [place] [address] [place] [address] 04/25/2024 15:20:41 04/25/2024 16:17:40 Routine gynecologic examination 995602062 Z01.419 Additional diagnosis detail: Women's annual routine gynecologi collin examinatio n Health Concerns Section Related Observation LastModified by Organization Detai ls LastModified Time None Recorded Concern Status LastModified by Organization Details LastModified Time None Recorded Advance Directives Directive None Recorded Payers Encounter Date Sequence Insurance Name Policy Number Policy Moreno Covered Member ID Moreno Member ID Guarantor Name 04/25/2024 1 [facility] [id number] Racheal Alva [id number] Racheal Alva 04/25/2024 2 [place] [facility] Racheal Alva [id number] Racheal Alva Notes Date Note Type Note Provider Name and Address Organization Details Recorded Time 04/25/2024 text/html This is a patien t Dr. Benavides presents today for annual visit. She is a 28-year-old G1, P1 currently have a Mirena IUD for contraception. IUD was placed 2017. Patient is amenorrheic. She would like to continue with IUD for contraception. She is engaged to be , moving a statin. 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 Crohn's2. Irregular heartbeat Maida Mulligan APRN, CNM [address] [place], [address], [facility] 04/26/2024 14:28:04 OBGyn Episode No OBEpisode recorded.
--- OUTSIDE RECORDS SUMMARY | 2025-03-09 18:13 | XMS_ITS | Encounter Summary ---
Author Organization [facility] Address [facility] [place] [address] Care Team Providers Care Site Planner Name Role Phone Osiris Salinas MD Unavailable Ev Pollack NP Primary Care Provider [phone] [facility] DO Primary Care Provider [phone] Lisa Ott MD Primary Care Provider [phone] Reason for Visit * Reason Onset Date Comments Preprocedure Call 07/21/2023 Spoke with pat sandranorth for upcoming appt on 08/05. Check in at 0800, bring a school bus driver/custodian. Encounter Details Date Type Department Care Team (Late st Contact Info) Description 07/21/2023 Pre-Procedure Call [facility] Pre Access Team [address] [place] [address] Latoya Mullen, RN Preprocedure Call (Spoke with patient for upcoming appt on 08/05. Check in at 0800, bring a school bus driver/custodian. ) Social History Tobacco Use Types Packs/Day Years [...] st Contact Info) Description 11/26/2025 3:15 PM WEB DEVELOPER PROGRAMMER Office Visit [facility] eld [address] [place] [address] Osiris Salinas MD [address] [place] [address] documented as of this encounter Visit Diagnoses Not on filedocumented in this encounter Additional Health Concerns Assessment Noted Time PHQ-9 Depression Total Score: 0 02/12/20 22 4:34 PM CDT documented as of this encounter Care Teams Site Planner Relationship Specialty Start Date End Date Ev Pollack NP [address] [place] [address] PCP - General Nurse Practitioner Family 09/22/22 06/06/24 Heavenly House DO [address] [place] [address] PCP - General FAMILY PRACTICE 06/07/24 10/01/24 Lisa Ott MD [address] [place] [address] PCP - General FAMILY PRACTICE 10/02/24 sOiris Salinas MD [address] [place] [address] Consulting Physician CARDIOVASCULAR DISEASE 02/23/22 documented as of this encounter
--- OUTSIDE RECORDS SUMMARY | 2025-03-09 18:13 | XMS_ITS | Referral Summary ---
Author Organization [facility] Address [address] [place] [address] Care Team Providers Care Machine Programmer Name Role Phone Ev Pollack NP Primary Care Provider [phone] Social History Tobacco Use Types Packs/Day Years Used Date Smoking Tobacco: Never Assessed Personal Safety Answer Date Recorded Getting School Help Needed Not on file 02/15 Comments Unknown Sex and Gender Information Value Date Recorded Sex Assigned at Not on file Legal Sex Female 5:38 PM CDT Gender Identity Not on file Sexual Orientation Not on file Plan of Treatment Not on file Insurance [facility] CHOICE PLUS [facility] HMO/PPO Address: [facility] [address] [place] [id number] Care Teams Machine Programmer Relationship Specialty Start Date End Date [place] [address] PCP - General Nurse Practitioner 02/16/24
--- OUTSIDE RECORDS SUMMARY | 2025-03-09 18:16 | XMS_ITS | Continuity of Care Document ---
Author Organization [facility] Address [address] [place] [address] Phone Care Team Providers Care Feed In Worker Name Role Phone NguyenIleana renteria PA-C Unavailable [...] W/O SCOPE OFFICE/OUTPATIENT VISIT, EST OFFICE/OUTPATIENT VISIT, [facility] Advance Directives Directive Yes / No Effective Date File Name No Information Encounters Encounter Description Practice Location Reason(s) For Visit Diagnoses Date Provider Providers Copied on Encounter [facility], [address] [place] [address], [id number], [place] tel:[phone] [facility] No Information 7 Nguyen Tejeda. [address] [place] [address], [address], [place]. tel:[phone] OFFICE/OUTPA TIENT VISIT, EST [facility], [address] [place] [address], [id number], tel:[phone] [facility] dysuria (chief complaint) DysuriaUTI Feb- 7 Nguyen Tejeda. [address] [place], [address], [place]. tel:[phone] Referring Provider: Broderick Garza, [facility] [place], [address] . tel:[phone] OFFICE/OUTPA TIENT VISIT, [facility], [address], [place], [place], [id number], [place] tel:[phone] [facility] nausea and vomiting (chief complaint) Nausea with vomiting, unspecifiedGastro enteritisAcute upper respiratory infection, unspecified 6 Latesha Villafana. [address] [place], [place], [id number], [place]. tel:[phone] Referring Provider: Broderick Garza, [facility] [place], [address] . tel:[phone] Family History Family Member Type Diagnosis Age At Onset No Information Payers Payer name Insurance type Covered democrat ID Anna araujo(s) [facility] [id number] CI [id number] Social History Type Description Quantity Date Captured [...]
[2025-03-09] MEDS: SODIUM CHLORIDE 0.9% IV 1,000 ML 999 ML IV CONT ×2 (18:45→19:41)
[2025-03-09] MEDS: ONDANSETRON INJ 4 MG/2 ML VIAL IV PUSH (18:45)
[2025-03-09 18:50] LABS: Hematocrit 42.4 % (35.0-49.0); Hemoglobin 13.9 g/dL (12.0-15.0); Mean Corpuscular HGB Conc 32.8 g/dL (32-36); Mean Corpuscular Hemoglobin 30.3 pg (27.0-31.0); Mean Corpuscular Volume 92.4 fL (78.0-102.0); Mean Platelet Volume 10.7 fl (9.2-11.8); Platelet Count Result 295 K/mm3 (150-420); Red Blood Count 4.59 M/mm3 (4.20-5.40); Red Cell Distribution Width 12.9 % (11.6-14.4); White Blood Count 7.9 K/mm3 (4.8-10.8)
--- NOTE | 2025-03-09 18:50 | PC.NURSE ---
On 03/09/25, the student, [krystal lewis ], provided care and completed [facility] documentation on this patient. I have reviewed the student's documentation and agree with the findings.
[2025-03-09 19:02] LABS: Alanine Aminotransferase 20 U/L (14-59); Albumin Level 3.3 g/dL (3.4-5.0); Alkaline Phosphatase 100 U/L (46-116); Anion Gap 11 mmol/L (4-12); Aspartate Amino Transferase 11 U/L (15-37); Bilirubin,Total 0.4 mg/dL (0.00-1.00); Blood Urea Nitrogen 14 mg/dL (7-18); Calcium 8.5 mg/dL (8.5-10.1); Carbon Dioxide 24 mmol/L (21-32); Chloride 109 mmol/L (98-108); Estimated CRCL calculation 74 ml/min; Estimated Glomerular Filt Rate 60; Glucose 98 mg/dL (70-99); Osmolality Calculated 298 mOsm/kg (285-295); Potassium 3.4 mmol/L (3.5-5.1); Sodium 144 mmol/L (136-145); Total Protein 7.5 g/dL (6.4-8.2)
[2025-03-09 19:10] VITALS: BP 111/75; PULSE 108; RESP 18; O2SAT 99
[2025-03-09 19:12] LABS: SPREG INTERNAL CONTROL Positive; Serum Qual hCG Negative
[2025-03-09] MEDS: KETOROLAC 30 MG/ML VIAL (*BKC) IV PUSH (19:14)
[2025-03-09] MEDS: POTASSIUM CHLORIDE 20 MEQ ER TABLET 40 MEQ PO (19:42)
[2025-03-09 20:41] LABS: Add Urine Microscopic? NO; Appearance Urine Clear (Clear); Bilirubin Urine Negative (Negative); Blood Urine Negative (Negative); Color Urine Light Yellow (Yellow); Glucose Urine UA Negative (Negative); Ketones Urine Negative (Negative); Leukocyte Esterase Ur Negative LEU/UL (Negative); Nitrate Urine Negative (Negative); Protein Urine Negative (Negative); Urobilinogen Urine 0.2 mg/dL (0.2-1.0); pH Urine 5.5 (5.0-8.0)
[2025-03-09 20:59] VITALS: BP 113/67; PULSE 99; RESP 18; TEMP 36.6; O2SAT 99
== END 2025-03-09 21:14 | disposition home or self-care (01) ==
PROVIDERS: Emergency Provider Emergency Medicine; PCP Family Medicine
DX: K50.919 Crohn's disease, unspecified, with unspecified complications (principal); N17.9 Acute kidney failure, unspecified; E87.6 Hypokalemia; I10 Essential (primary) hypertension
CPT/HCPCS: 36415; 74177; 80053; 81003; 84703; 85027; 96361; 96374; 96375; 99284; A9270; J1885; J2405; J7030; Q9967

== ENCOUNTER 2025-10-07 15:12 | Emergency (ER) | payer OTHER, SELFPAY ==
--- OUTSIDE RECORDS SUMMARY | 2017-03-24 06:04 | XMS_ITS | Continuity of Care Document ---
Author Organization Complete [facility] Address [address] [facility] [place] [address] Phone Care Team Providers Care Financial Solutions Advisor Name Role Phone NguyenIleana renteria PA-C Unavailable Unavailable Allergies, Adverse Reactions, Alerts Substance Reaction Status Criticality No Known Allergies Active No Inform ation Medications Medication Instructions Dosage Effective Dates (start - stop) Status Comments Diflucan 150 mg tablet take 1 tablet by oral route once - Active Macrobid 100 mg capsule take 1 capsule by oral route every 12 hours for 5 days with food 100 MG - No Longer Active Procedures Procedure Date URINALYSIS, AUTO, W/O SCOPE OFFICE/OUTPATIENT VISIT, EST OFFICE/OUTPATIENT VISIT, [facility] Advance Directives Directive Yes / No Effective Date File Name No Information Encounters Encounter Description Practice Location Reason(s) For Visit Diagnoses Date Provider Providers Copied on Encounter Complete [facility], [address] [place] [address], [id number], [place] tel:[phone] [facility] No Information 7 Nguyen Tejeda. [address] [place] [address], [id number], [place]. tel:[phone] OFFICE/OUTPA TIENT VISIT, EST [facility], [address] [place] [address], [id number], tel:[phone] [facility] dysuria (chief complaint) DysuriaUTI Feb- 7 Nguyen Tejeda. [address] [place], [address], [place]. tel:[phone] Referring Provider: Broderick Garza, [facility] [place], [address] . tel:[phone] OFFICE/OUTPA TIENT VISIT, [facility], [address], [place], [place], [id number], [place] tel:[phone] [facility] nausea and vomiting (chief complaint) Nausea with vomiting, unspecifiedGastro enteritisAcute upper respiratory infection, unspecified 6 Latesha Villafana. [address], [place], [id number], [place]. tel:[phone] Referring Provider: Broderick Garza, [facility] [place], [address] . tel:[phone] Family History Family Member Type Diagnosis Age At Onset No Information Payers Payer name Insurance type Covered libertarian ID [place] araujo(s) [facility] [id number] CI [id number] Social History Type Description Quantity Date Captured Comments Sex Female Smoking Status No Information Chief Complaint And Reason For Visit No Information Reason For Referral Reason For Referral No Information History Of Present Illness Encounter Date Complaint History Of Andrade nt Illness dysuria Onset: 5 Days. T he severity of the problem is moderate. Pain scale: 6/10. The problem has worsened. The symptoms are intermittent. Presenting/Initial symptoms include burning, dysuria, frequency and urgency. Symptoms are not associated with diabetes, , recent catheterization or recurring urinary tract infection. Aggravating factors include urination. Symptoms are not aggravated by baths, certain foods or sexual activity. Denies relieving factors. Associated symptoms include dysuria, frequency and urgency. Pertinent negatives include abdominal pain, dribbling, fatigue, fever, flank pain, hematuria, hesitancy, nausea, nocturia, pelvic pain, penile discharge, pressure, rash, retention, vaginal discharge or vomiting. Additional information: Pt. thought at first this was a yeast infection but then had burning and not the itching. Pt. nausea and vomiting Onset: 2 day s ago. Severity level is: 8. Duration: 2 Days. The patient's friend describes it as bilious and mucus. Context: nocturnal. Symptom is aggravated by heavy meals. Denies relieving factors. Associated symptoms include fever, nausea and vomiting. Pertinent negatives include abdominal pain, bloating, cramping (abdominal) and dehydration. Functional Status Date Functional Assessmen t No Information Instructions Date Instruction Additional Infor ishaan Patient was prescrib ed Macrobid 100mg BID X 5 days. She was encouraged to drink plenty of clear fluids, and is to avoid caffeinated beverages, especially tea. Patient was encouraged to urinate as soon as the urge is felt, and to urinate before and after sexual intercourse. She is to RTC if symptoms persist for greater than 48 hours after antibiotic is started, or if symptoms worsen. A single diflucan was also sent to pharmacy in case of secondary candidiasis. Patient had no further questions at this time. Related to Dysuria Pt presents with ups et stomach, fever, and sore throat. Rx Zofran and she is to have clear liquids for 24-48 hours and will take her Augmentin when she feels she can keep it down. Call back with any concerns. Voiced understanding. Related to Nausea with vomiting, unspecified Pt presents with ups et stomach, fever, and sore throat. Rx Zofran and she is to have clear liquids for 24-48 hours and will take her Augmentin when she feels she can keep it down. Call back with any concerns. Voiced understanding. Related to Gastroenteritis Pt presents with ups et stomach, fever, and sore throat. Rx Zofran and she is to have clear liquids for 24-48 hours and will take her Augmentin when she feels she can keep it down. Call back with any concerns. Voiced understanding. Related to Acute upper respiratory infection, unspecified Assessments Type Assessment Date No Information Patient Care Teams Name Effective Dates (start - stop) Status Members No Information
--- NOTE | ~2025-10-07 | CT_ITS ---
EXAM/PROCEDURE: CT abdomen pelvis w con HISTORY: CROHN'S DISEASE COMPARISON: March 09, 2025 TECHNIQUE: Contrast-enhanced CT of the abdomen and pelvis performed FINDINGS: The bowel gas pattern is nonobstructive with no free air free fluid or pneumatosis. Normal size appendix and aorta. No hydroureteronephrosis or obstructing ureteral stones. No urolithiasis seen. The gallbladder is contracted. Liver pancreas spleen and stomach appear stable. No bulky lymphadenopathy or masses seen. Retroaortic left renal vein. Urinary bladder appears normal for technique. Anteflexed uterus and adnexal regions appear stable including appropriately positioned IUD. Lung bases clear. Bones intact. Moderate amount of stool extends to the cecum. No gross inflammatory process identified. IMPRESSION: No acute process seen to explain patient's symptoms. Reviewed, dictated and finalized at location A. KTOP PAVER OPERATOR
[2025-10-07 15:12] VITALS: BP 122/73; PULSE 103; RESP 16; TEMP 36.8; O2SAT 100
--- OUTSIDE RECORDS SUMMARY | 2025-10-07 15:15 | XMS_ITS | Clinical Summary ---
Author Organization [facility] Address [address] [place] [address] Care Team Providers Care Baker Paint Name Role Phone Ev Pollack NP Primary Care Provider [phone] Social History Tobacco Use Types Packs/Day Years [...] Well Visit/Exam 18-64 2015 Influenza Vaccine (#1) 2025 07/30/2020 DTaP/Tdap/Td Vaccine (9 - Td or Tdap) 07/05/2028 07/05/2018, 05/09/2012, 07/11/2009, Additional history exists Hepatitis B Screening Completed 08/27/1998 , 06/24/1998, 02/05/1998 Varicella Vaccines Completed 06/28/2011, 0 07/02/2003, 06/28/2000, Additional history exists HPV Vaccines Completed 05/09/2012, 05/2012, 06/28/2011 Pneumococcal vaccine <65 Aged Out No longer eligible based on patient's age to complete this topic Insurance [facility] CHO[facility] PLUS Care Teams Baker Paint Relationship Specialty Start Date End Date Ev Pollack NP [facility] [place] [address] PCP - General Nurse Practitioner 02/16/24
--- NOTE | 2025-10-07 15:18 | ED_ITS ---
HPI - Abdominal Pain General Chief Complaint: Nausea/Vomiting/Diarrhea Stated Complaint: recal bleeding Time Seen by Provider: 10/07/25 15:17 Source: patient Limitations: no limitations History of Present Illness HPI narrative: 29 YEARS OLD WHITE FEMALE DROVE HERSELF TO THE EMERGENCY ROOM COMPLAINING OF LOWER ABDOMINAL CRAMPS ASSOCIATED WITH BLOODY DIARRHEA, MAXIMUM FOR BM SINCE LAST NIGHT. SHE DENIES ANY FEVER, CHILLS, NAUSEA, VOMITING. HISTORY OF CROHN'S. Related Data Home Medications ?Medication ?Instructions ?Recorded ?Confirmed ?Last Taken ?Type amitriptyline 50 mg tablet mg 12/25/24 Unknown Histor y buspirone 7.5 mg tablet mg 12/25/24 Unknown History hyoscyamine sulfate 0.125 mg tablet mg 12/25/24 Unkno wn History metoprolol tartrate 25 mg tablet mg 12/25/24 Unknown History midodrine 10 mg tablet mg 12/25/24 Unknown History ondansetron 4 mg disintegrating mg 12/25/24 Unknown H istory tablet sertraline 50 mg tablet mg 12/25/24 Unknown History Allergies Allergy/AdvReac Type Severity Reaction Status Date / Time azithromycin (From Zithromax) Allergy Intermediate rash Verified 10/07/25 15:14 Review of Systems 2 Review of Systems: All systems reviewed & are unremarkable except as noted in HPI and below Exam 2 Narrative: GENERAL APPEARANCE: WELL-DEVELOPED, WELL-NOURISHED SKIN: NORMAL COLOR HEAD: NORMOCEPHALIC, NONTRAUMATIC EYES: CLEAR CONJUNCTIVA ENT: OROPHARYNX NORMAL, EARS NORMAL, NOSE NORMAL NECK: SUPPLE, NONTENDER CHEST AND RESPIRATORY: AIRWAY PATENT, NO RESPIRATORY DISTRESS, NO ACCESSORY MUSCLE USE HEART: REGULAR RATE/RHYTHM ABDOMEN: SOFT, NONTENDER, NO ORGANOMEGALY, QUIET BOWEL SOUNDS RECTAL EXAM, EMPTY RECTAL POUCH, NO GROSS BLOOD, GUAIAC NEGATIVE VASCULAR: NORMAL PERIPHERAL PULSES, NORMAL CAPILLARY REFILL. MUSCULOSKELETAL: NORMAL RANGE OF MOTION, NONTENDER BACK NEUROLOGIC: ALERT AND ORIENTED ?3, MATERIALS PLANNER/PRODUCTION PLANNER IS NORMAL TESTED, NO GROSS MOTOR DEFICIT Course Vital Signs Vital signs: Vital Signs Temperature 36.8 C 10/07/25 15:12 Pulse Rate 103 H 10/07/25 15:12 Respiratory Rate 16 10/07/25 15:12 Blood Pressure 122/73 10/07/25 15:12 Pulse Oximetry 100 10/07/25 15:12 Oxygen Delivery Room Air 10/07/25 15:12 Temperature 36.8 C 10/07/25 15:12 Pulse Rate 103 H 10/07/25 15:12 Respiratory Rate 16 10/07/25 15:12 Blood Pressure 122/73 10/07/25 15:12 Pulse Oximetry 100 10/07/25 15:12 Oxygen Delivery Room Air 10/07/25 15:12 MDM - Abdominal Pain MDM Narrative Medical decision making narrative: PATIENT CAME WITH BLOODY DIARRHEA VITAL SIGNS SHOWING HEART RATE OF 103 OTHERWISE WITHIN NORMAL LIMIT PHYSICAL EXAMINATION IS UNREMARKABLE, RECTAL EXAM SHOWED NO GROSS BLOOD, GUAIAC NEGATIVE DIFFERENTIAL DIAGNOSIS UNSPECIFIED DIARRHEA, ELECTROLYTE IMBALANCE, DEHYDRATION, CROHN'S FLARE. BLOOD WORKUP TODAY INCLUDES CBC, CMP, LIPASE SHOWED NO SIGNIFICANT ABNORMALITY. COAGS SHOWED NO SIGNIFICANT ABNORMALITY URINALYSIS SHOWED NO ACUTE ABNORMALITY CT ABDOMEN AND PELVIS WITH IV CONTRAST SHOWED NO ACUTE ABNORMALITY. DIAGNOSIS: DIARRHEA, UNSPECIFIED THE PT WAS DISCHARGED TO HOME.THE PT,S CONDITION UPON DISCHARGE WAS FAIR,EDUCATION WAS PROVIDED TO THE PT IN REFERENCE TO THE FINAL IMPRESSION,DISCHARGE STUDY RESULTS,TREATMENT,PROGNOSIS AND NEED FOR FOLLOW UP . Differential Diagnosis Differential diagnosis: Likely other ( ABOVE) Medical Records Attestation: I reviewed the patient's medical records. Lab Data Attestation: I reviewed the patient's lab results. 10/07/25 15:29 10/07/25 15:29 Labs: Lab Results 10/07/25 10/07/25 10/07/25 Range/Units 15:29 15:31 15:36 WBC 8.9 (4.8-10.8) K/mm3 RBC 4.11 L (4.20-5.40) M/mm3 Hgb 12.6 (12.0-15.0) g/dL Hct 38.7 (35.0-49.0) % MCV 94.2 (78.0-102.0) fL MCH 30.7 (27.0-31.0) pg MCHC 32.6 (32-36) g/dL RDW 12.6 (11.6-14.4) % Plt Count 278 (150-420) K/mm3 MPV 10.2 (9.2-11.8) fl Immature Gran % (Auto) 0.3 H (0.0-0.0) % Neut % (Auto) 61.8 (50.0-70.0) % Lymph % (Auto) 27.9 (18.0-42.0) % [place] % (Auto) 7.7 (2.0-11.0) % Eos % (Auto) 1.5 (1.0-6.0) % Baso % (Auto) 0.8 (0.0-1.0) % Lymph # (Auto) 2.49 (1.10-4.50) K/mm3 [place] # (Auto) 0.69 (0.10-0.90) K/mm3 Eos # (Auto) 0.13 (0.02-0.50) K/mm3 Baso # (Auto) 0.07 (0.00-0.10) K/mm3 Abs Immat Gran (auto) 0.03 H (0.00-0.00) K/mm3 Absolute Neuts (auto) 5.51 (1.70-7.20) K/mm3 Absolute Nucleated RBC 0.00 (0.00-0.00) K/mm3 Nucleated RBC % 0.0 (0-0.0) % PT 11.1 (9.50-12.1) Seconds INR 1.0 APTT 26.6 (23.9-30.70) Sec Sodium 143 (137-145) mmol/L Potassium 3.7 (3.4-5.0) mmol/L Chloride 110 H (98-107) mmol/L Carbon Dioxide 23 (22-30) mmol/L Anion Gap 10 (4-12) mmol/L BUN 13 (7-17) mg/dL Creatinine 1.00 (0.7-1.0) mg/dL Estim Creat Clear Calc 81 ml/min Estimated GFR > 60 (59 - ) Glucose 98 (65-110) mg/dL Calculated Osmolality 296 H (285-295) mOsm/kg Lactic Acid 0.8 (0.7-2.0) mmol/L Calcium 9.0 (8.4-10.2) mg/dL Total Bilirubin 1.1 (0.2-1.3) mg/dL AST 23 (14-36) U/L ALT 17 (6-35) U/L Alkaline Phosphatase 87 (38-126) U/L Total Protein 7.7 (6.3-8.2) g/dL Albumin 4.5 (3.5-5.1) g/dL Lipase 172 (23-300) U/L Urine Color Light yellow (Yellow) Urine Appearance Sl cloudy A (Clear) Urine pH 5.5 (5.0-8.0) Ur Specific [place] 1.025 H (1.010-1.020) Urine Protein Negative (Negative) Urine Glucose (UA) Negative (Negative) Urine Ketones Negative (Negative) Ur Blood (Man) Negative (Negative) Urine Nitrate Negative (Negative) Urine Bilirubin Negative (Negative) Urine Urobilinogen 0.2 (0.2-1.0) mg/dL Leukocyte Esterase Rfl 1+ H (Negative) ZAID/UL Urine RBC None seen (0-2) /hpf Urine WBC 0-5 (0-3) /hpf Ur Squamous Epith Cells Moderate H (Few) /hpf Urine Bacteria 2+ H (None) /hpf Stool Occult Blood Negative (Negative) Imaging Data Radiologist's impression: ITS Impressions Abdomen/Pelvis CT 10/07/25 16:50 IMPRESSION: No acute process seen to explain patient's symptoms. Critical Care Time Critical Care Time Critical Care Time: No Discharge Plan Discharge Clinical Impression: Diarrhea Patient Disposition: Home Condition: Stable Instructions: Acute Diarrhea (ED) Additional Instructions: RETURN IF SYMPTOMS ARE WORSENING , CALL YOUR FAMILY PHYSICIAN FOR APPOINTMENT, TAKE TYLENOL NEEDED FOR ACHES AND PAIN, CONTINUE HOME MEDICATIONS. ENCOURAGE FLUID INTAKE Patient Language: Frisian Prescriptions: No Action ondansetron 4 mg tablet,disintegrating 4 mg PO Q4H PRN (Reason: nausea and vomiting) 14 Days Qty: 30 0RF Rx Instructions: give 1st dose 30min before emetogenic chemo potassium chloride 20 mEq tablet,ER particles/crystals 40 meq PO ONCE 7 Days Qty: 14 0RF amitriptyline 50 mg tablet hyoscyamine sulfate 0.125 mg tablet buspirone 7.5 mg tablet ondansetron 4 mg tablet,disintegrating sertraline 50 mg tablet midodrine 10 mg tablet metoprolol tartrate 25 mg tablet cyclobenzaprine 10 mg tablet 10 mg PO TID PRN (Reason: muscle spasm) Qty: 20 0RF Follow-up/Referrals: UNKNOWN,DOCTOR [Non-Staff]
[2025-10-07 15:35] LABS: Hematocrit 38.7 % (35.0-49.0); Hemoglobin 12.6 g/dL (12.0-15.0); Immature Granulocyte Percent A 0.3 % (0.0-0.0); Lymphocytes Absolute Auto 2.49 K/mm3 (1.10-4.50); Mean Corpuscular HGB Conc 32.6 g/dL (32-36); Mean Corpuscular Hemoglobin 30.7 pg (27.0-31.0); Mean Corpuscular Volume 94.2 fL (78.0-102.0); Nucleated Red Blood Cells Absolute Auto 0.00 K/mm3 (0.00-0.00); Nucleated Red Blood Cells Perc 0.0 % (0-0.0); Platelet Count Result 278 K/mm3 (150-420); Red Blood Count 4.11 M/mm3 (4.20-5.40); White Blood Count 8.9 K/mm3 (4.8-10.8)
[2025-10-07] MEDS: SODIUM CHLORIDE 0.9% IV 2,000 ML 999 ML IV CONT (15:36)
[2025-10-07 15:41] LABS: Add Urine Microscopic? YES; Appearance Urine Sl Cloudy (Clear); Glucose Urine UA Negative (Negative); Leukocyte Esterase Ur 1+ LEU/UL (Negative); Nitrate Urine Negative (Negative); Specific Grav Ur 1.025 (1.010-1.020)
[2025-10-07 15:46] LABS: Alanine Aminotransferase 17 U/L (6-35); Albumin Level 4.5 g/dL (3.5-5.1); Alkaline Phosphatase 87 U/L (38-126); Anion Gap 10 mmol/L (4-12); Aspartate Amino Transferase 23 U/L (14-36); Bilirubin,Total 1.1 mg/dL (0.2-1.3); Blood Urea Nitrogen 13 mg/dL (7-17); Calcium 9.0 mg/dL (8.4-10.2); Carbon Dioxide 23 mmol/L (22-30); Chloride 110 mmol/L (98-107); Estimated CRCL calculation 81 ml/min; Estimated Glomerular Filt Rate > 60; Glucose 98 mg/dL (65-110); Lipase 172 U/L (23-300); Osmolality Calculated 296 mOsm/kg (285-295); Potassium 3.7 mmol/L (3.4-5.0); Sodium 143 mmol/L (137-145); Total Protein 7.7 g/dL (6.3-8.2)
[2025-10-07 15:48] LABS: INR 1.0; Partial Thromboplastin Time 26.6 Sec (23.9-30.70); Prothrombin Time 11.1 Seconds (9.50-12.1)
--- OUTSIDE RECORDS SUMMARY | 2025-10-07 16:00 | XMS_ITS | Encounter Summary ---
Author Organization [facility] Address [facility] [place] [address] Care Team Providers Care Web Content Specialist Name Role Phone Osiris Salinas MD Unavailable [facility] DO Primary Care Provider Lisa Stewart MD Primary Care Provider Encounter Details Date Type Department Care Team (Late Contact Info) Description 06/22/2024 RaftOut Message Enc [facility] [address] [place] [id number] [employer] Provider lab results Social History Tobacco Use [...] Department Care Team (Late Contact Info) Description 11/29/2025 3:15 PM BRAND ACTIVATION MANAGER Office Visit [facility] [address] [place] [address] Osiris Salinas MD [address] [place] [address] documented as of this encounter Visit Diagnoses Not on filedocumented in this encounter Additional Health Concerns Assessment Noted Time PHQ-9 Depression Total Score: 0 02/12/20 4:34 PM CDT documented as of this encounter Care Teams Web Content Specialist Relationship Specialty Start Date End Date Heavenly House DO [address] [place] [address] PCP - General FAMILY PRACTICE 06/07/24 10/01/24 Lisa Ott MD [address] [place] [address] PCP - General FAMILY PRACTICE 10/02/24 Osiirs Salinas MD [address] [place] [address] Consulting Physician CARDIOVASCULAR DISEASE 02/23/22 documented as of this encounter
--- OUTSIDE RECORDS SUMMARY | 2025-10-07 16:00 | XMS_ITS | Encounter Summary ---
Author Organization [facility] Address [facility] [place] [address] Care Team Providers Care Mandolin Repair Person Name Role Phone Osiris Salinas MD Unavailable Ev Pollack NP Primary Care Provider [phone] [facility] DO Primary Care Provider Lisa Stewart MD Primary Care Provider [phone] Reason for Visit * Reason Onset Date Comments Preprocedure Call 07/21/2023 Spoke with pat ient for upcoming appt on 08/05. Check in at 0800, bring a jeep driver. Encounter Details Date Type Department Care Team (Late st Contact Info) Description 07/21/2023 Pre-Procedure Call [facility] Pre Access Team [address] [place] [address] Latoya Mullen, RN Preprocedure Call (Spoke with patient for upcoming appt on 08/05. Check in at 0800, bring a jeep driver. ) Social History Tobacco Use Types Packs/Day [...] Care Team (Late st Contact Info) Description 11/29/2025 3:15 PM BODY SHOP SUPERVISOR Office Visit [facility] el [address] [place] [address] Osiris Salinas MD [address] [place] [address] documented as of this encounter Visit Diagnoses Not on filedocumented in this encounter Additional Health Concerns Assessment Noted Time PHQ-9 Depression Total Score: 0 02/12/20 4:34 PM CDT documented as of this encounter Care Teams Mandolin Repair Person Relationship Specialty Start Date End Date Ev Pollack NP [address] [place] [address] PCP - General Nurse Practitioner Family 09/22/22 06/06/24 [facility] DO [address] [place] [address] PCP - General FAMILY PRACTICE 06/07/24 10/01/24 Lisa Ott MD [address] [place] [address] PCP - General FAMILY PRACTICE 10/02/24 Osiris Salinas MD [address] [place] [address] Consulting Physician CARDIOVASCULAR DISEASE 02/23/22 documented as of this encounter
--- OUTSIDE RECORDS SUMMARY | 2025-10-07 16:00 | XMS_ITS | Clinical Summary ---
Author Organization [facility] Address [facility] [place] [address] Care Team Providers Care Weigher Packing Name Role Phone Osiris Salinas MD Unavailable Lisa Ott MD Primary Care Provider [phone] Allergies Active Allergy Reactions Criticality Noted Date [...] s:Crohn's disease of small intestine without complication (CMS/HCC HHS/HCC) Take 2 capsules by mouth once daily 60 capsule 4 Active ivabradine (CORLANOR) 7.5 MG tabletIndications :Inappropriate sinus tachycardia (HHS/HCC),SOB (shortness of breath) Take 1 tablet (7.5 [...] 05/25/2023 Anxiety 05/25/2023 Crohn's disease of large intestine without compl ication 07/05/2019 Crohn disease 05/14/2019 Abdominal pain 10/06/2018 Overview (10/06/2018): Added automatically from request for surgery [id number] GERD (gastroesophageal reflux disease) 8 Overview (10/06/2018): Added automatically from request for surgery [id number] Chronic fatigue syndrome 05/30/2012 Immunizations Immunization Administration Dates Next Due Dtap (Generic) 07/02/2003, [...] Comments Blood Pressure 130/72 11/16/2024 11:42 AM HAND FLATWORK FINISHER Pulse 93 11/16/2024 11:42 AM HAND FLATWORK FINISHER Temperature 36.7 C (98 F) 05/25/2023 9:02 AM CDT Respiratory Rate 16 11/16/2024 11:42 AM HAND FLATWORK FINISHER Oxygen Saturation 96% 05/16/2024 3:01 PM CDT Inhaled Oxygen Concentration - - Weight 95.4 kg (210 lb 6.4 oz) 11/16/2024 11:42 AM HAND FLATWORK FINISHER Height 160 cm (5' 3) 11/16/2024 11:42 AM HAND FLATWORK FINISHER Body Mass Index 37.27 11/16/2024 11:42 AM HAND FLATWORK FINISHER Plan of Treatment Upcoming Encounters Date Type Department Care Team (Late st Contact Info) Description 11/29/2025 3:15 PM HAND FLATWORK FINISHER Office Visit [facility] [address] [place] [address] Osiris Salinas MD [address] [place], [place] [id number] Health Maintenance Due Date Last Done Comments Cervical Cancer Screening Pap Smear (Age 21 to 29) Every 3 Years 1997 Cervical Cancer Screening 1997 Hepatitis C 2015 Annual Physical 11/11/2022 11/11/2021, 04/16/2021 PHQ-2 (Physician [facility] [employer] [employer] [facility] [place]) 11/28/2024 COVID-19 Vaccine ( season) 2025 Influenza Adult (#1) 2025 07/30/2020 DTaP, Tdap and Td Vaccines (9 - Td or Tdap) 07/05/2028 07/05/2018, 05/09/2012, 07/11/2009, Additional history exists Hepatitis B Vaccines Completed 08/27/1998, 06/24/1998, 02/05/1998 HPV Vaccines Completed 05/09/2012, 05/2012, 06/28/2011 Meningococcal Vaccine Completed 07/04/2015 Hepatitis A Vaccines Aged Out No long er eligible based on patient's age to complete this topic Meningococcal B Vaccine Aged Out No l onger eligible based on patient's age to complete this topic Pneumococcal Vaccine: Pediatrics (0 to 5 Years) and At-Risk Patients (6 to 49 Years) Aged Out No longer eligible based on patient's age to complete this topic RSV Immunizations Under 20 Months Aged Out No longer eligible based on patient's age to complete this topic Insurance MEDICAID [facility] Care Teams Weigher Packing Relationship Specialty Start Date End Date Lisa Ott MD [address] [place] [address] PCP - General FAMILY PRACTICE 10/02/24 Osiris Salinas MD [address] [place] [address] Consulting Physician CARDIOVASCULAR DISEASE 02/23/22
--- OUTSIDE RECORDS SUMMARY | 2025-10-07 16:00 | XMS_ITS | Clinical Summary ---
Author Organization [facility] Address [address] [place] [address] Care Team Providers Care Airfield Manager Name Role Phone Ev Pollack NP Primary Care Provider [phone] Social History Tobacco Use Types Packs/Day Years [...] patient's age to complete this topic Insurance [facility] CHO[facility] H[facility]PPO Address: [facility] [id number] [place] [address] Care Teams Airfield Manager Relationship Specialty Start Date End Date Ev Pollack NP [facility] [place] [address] PCP - General Nurse Practitioner 02/16/24
--- OUTSIDE RECORDS SUMMARY | 2025-10-07 16:00 | XMS_ITS | Encounter Summary ---
Author Organization [facility] Address [facility] [place] [address] Care Team Providers Care Human Relations Manager Name Role Phone Osiris Salinas MD Unavailable Ev Pollack NP Primary Care Provider [phone] [facility] DO Primary Care Provider Lisa Stewart MD Primary Care Provider [phone] Encounter Details Date Type Department Care Team (Late st Contact Info) Description 04/14/2023 Reframe It Message Enc [facility] [address] [place] [address] Osiris Salinas MD [address] [place] [address] Side effects of medication Social [...] st Contact Info) Description 11/29/2025 3:15 PM LAUNDRY PRICING CLERK Office Visit [facility] [address] [place] [address] Osiris Salinas MD [address] [place] [address] documented as of this encounter Visit Diagnoses Not on filedocumented in this encounter Additional Health Concerns Assessment Noted Time PHQ-9 Depression Total Score: 0 02/12/20 4:34 PM CDT documented as of this encounter Care Teams Human Relations Manager Relationship Specialty Start Date End Date Ev Pollack NP [address] [place] [address] PCP - General Nurse Practitioner Family 09/22/22 06/06/24 [facility] DO [address] [place] [address] PCP - General FAMILY PRACTICE 06/07/24 10/01/24 Lisa Ott MD [address] [place] [address] PCP - General FAMILY PRACTICE 10/02/24 Osiris Salinas MD [address] [place] [address] Consulting Physician CARDIOVASCULAR DISEASE 02/23/22 documented as of this encounter
--- OUTSIDE RECORDS SUMMARY | 2025-10-07 16:00 | XMS_ITS | Encounter Summary ---
Author Organization [facility] Address [facility] [place] [address] Care Team Providers Care Heater Mechanic Name Role Phone Cachorro Myles MD Primary Care Provider Unava ilable Diane Plunkett SCHOOL BUS DRIVER Primary Care Provider + [phone] Diane Plunkett SCHOOL BUS DRIVER Primary Care Provider + [phone] Osiris Salinas MD Unavailable Ev Pollack SCHOOL BUS DRIVER Primary Care Provider [phone] [facility] DO Primary Care Provider Unavai Lisa Johnson MD Primary Care Provider [phone] Encounter Details Date Type Department Care Team (Late st Contact Info) Description 10/06/2018 Prep for Procedure [facility] - [place] [address], [id number] [place] [address] Mundo Sullivan MD [facility] [address] [place] [address] Social History Tobacco Use Types Packs/Day Years [...] st Contact Info) Description 11/29/2025 3:15 PM RELAY TESTER HELPER Office Visit [facility] [address] [place] [address] Osiris Salinas MD [address] [place] [address] documented as of this encounter Visit Diagnoses Diagnosis Abdominal pain- Primary Abdominal pain, unspecified site documented in this encounter Care Teams Heater Mechanic Relationship Specialty Start Date End Date Cachorro Myles MD PCP - General FAMILY PRACTICE 10/23/18 04/16/21 Diane Plunkett, SCHOOL BUS DRIVER [address] [place] [address] PCP - General NURSE PRACTITIONER 04/17/21 05/27/21 Diane Plunkett, NADER [address] [place] [address] PCP - General NURSE PRACTITIONER 07/06/21 09/21/22 Ev Pollack NP [address] [place] [address] PCP - General Nurse Practitioner Family 09/22/22 06/06/24 [facility] DO [address] [place] [address] PCP - General FAMILY PRACTICE 06/07/24 10/01/24 Lisa Ott MD [address] [place] [address] PCP - General FAMILY PRACTICE 10/02/24 Osiris Salinas MD [address] [place] [address] Consulting Physician CARDIOVASCULAR DISEASE 02/23/22 documented as of this encounter
[2025-10-07 17:14] VITALS: BP 106/69; PULSE 93; RESP 17; TEMP 36.6; O2SAT 100
== END 2025-10-07 17:28 | disposition home or self-care (01) ==
PROVIDERS: Emergency Provider Emergency Medicine; PCP Nurse Practitioner Family
DX: R19.7 Diarrhea, unspecified (principal)
CPT/HCPCS: 36415; 74177; 80053; 81001; 82272; 83605; 83690; 85025; 85610; 85730; 96360; 96361; 99284; J7030; Q9967